=== PATIENT | male | born 1985 | race Caucasian/White ===

== ENCOUNTER 2020-03-20 20:04 | Emergency (ER) | payer BC, MEDICAID ==
[~2020-03-20] VITALS: Ht 180.3 cm; Wt 68.0 kg
[2020-03-20] MEDS: prazosin 5mg capsule PO SCH
[2020-03-20] MEDS: clonazePAM 1mg tablet PO SCH
[2020-03-20] MEDS: traZODone 50mg tablet PO SCH
[~2020-03-20 20:04] MED LIST: DIAZ5TAB PO; DOXE50CA4 PO; OLAN2.5T3 PO; ONDA4TAB6 PO
[2020-03-20 20:28] LABS: BASOPHILS % (AUTO) 0.2 % (0-1); EOSINOPHILS # (AUTO) 0.3 X10'3 (0-0.9); EOSINOPHILS % (AUTO) 3.4 % (0-6); HEMATOCRIT 40.9 % (42.0-52.0); HEMOGLOBIN 14.2 g/dl (14.0-17.9); LYMPHOCYTES # (AUTO) 2.1 X10'3 (1.1-4.8); LYMPHOCYTES % (AUTO) 26.2 % (21-51); MEAN CORPUSCULAR HEMOGLOBIN 31.2 PG (27.0-31.0); MEAN CORPUSCULAR HGB CONC 34.7 g/dL (33.0-36.5); MEAN CORPUSCULAR VOLUME 90.2 FL (78-98); MEAN PLATELET VOLUME 7.9 FL (7.4-10.4); MONOCYTES # (AUTO) 0.8 X10'3 (0-0.9); MONOCYTES % (AUTO) 10.6 % (2-12); NEUTROPHILS # (AUTO) 4.7 X10'3 (1.8-7.7); NEUTROPHILS % (AUTO) 59.6 % (42-75); PLATELET COUNT 252 X10'3 (140-440); RED BLOOD COUNT 4.53 X10'6 (4.70-6.10); RED CELL DISTRIBUTION WIDTH 13.7 % (11.5-14.5); WHITE BLOOD COUNT 7.9 X10'3 (4.5-11.0)
[2020-03-20 20:39] LABS: ALANINE AMINOTRANSFERASE 28 U/L (12-78); ALBUMIN/GLOBULIN RATIO 1.2 (1.1-1.5); ALKALINE PHOSPHATASE 106 IU/L (46-116); ANION GAP 9 (8-16); ASPARTATE AMINO TRANSFERASE 18 U/L (10-37); BILIRUBIN,TOTAL 0.7 MG/DL (0.1-1.0); BLOOD UREA NITROGEN 11 MG/DL (7-18); BUN/CREATININE RATIO 11.6 (5.4-32.0); CALCIUM 8.7 MG/DL (8.5-10.1); CHLORIDE 104 MMOL/L (99-107); CREATININE 0.95 MG/DL (0.60-1.10); ETHANOL < 0.010 GM/DL (0.0-0.010); GLUCOSE 104 MG/DL (70-104); SODIUM 139 MMOL/L (135-145); TOTAL CARBON DIOXIDE 26.5 MMOL/L (24-32); TOTAL PROTEIN 7.4 G/DL (6.4-8.2); eGFR > 90 ML/MIN
[2020-03-20] MEDS ORDERED: CLON-527 PO (20:50)
[2020-03-20] MEDS ORDERED: TRAZ-256 PO (20:50)
[2020-03-20] MEDS ORDERED: PRAZ5CAP2 PO (20:51)
--- NOTE | 2020-03-20 23:37 | NUR ---
Pt sleeping peacefully. Medications for sleep and anxiety not needed at this time.
--- NOTE | 2020-03-21 00:48 | NUR ---
Pt escorted by staff from ER main to ER overflow. Pt given a sandwhich and, juice, and water.
--- NOTE | 2020-03-21 02:00 | NUR ---
Pt sleeping on R side RR WNL.
--- NOTE | 2020-03-21 05:33 | NUR ---
Pt woken up for vitals, pt still not able to urinate.
[2020-03-21 06:15] LABS: CLARITY,URINE SLIGHTLY CLOUDY (Clear); COLOR,URINE YELLOW (Yellow); GLUCOSE, URINE NEGATIVE (Neg); KETONES,URINE NEGATIVE (Neg); LEUKOCYTE ESTERASE ,URINE NEGATIVE (Neg); NITRITES, URINE NEGATIVE (Neg); OCCULT BLOOD,URINE NEGATIVE (Neg); PH,URINE 5.5 (4.8-8.0); PROTEIN,URINE NEGATIVE (Neg)
[2020-03-21 06:19] LABS: UA COLLECTION TYPE CLN CATCH MIDSTREAM
[2020-03-21 06:22] LABS: MUCUS STRANDS MANY /LPF (Neg); SQUAMOUS EPITHELIAL CELL,UR FEW /LPF (FEW)
[2020-03-21 06:23] LABS: BACTERIA,URINE FEW /HPF (Neg); RBC,URINE 0-2 /HPF (0-2); URINE AMPHETAMINE SCREEN POSITIVE (Neg); URINE BARBITUATE SCREEN NEGATIVE (Neg); URINE BENZODIAZEPINES SCREEN NEGATIVE (Neg); URINE CANNABINOID SCREEN POSITIVE (Neg); URINE COCAINE SCREEN NEGATIVE (Neg); URINE METHADONE SCREEN NEGATIVE (Neg); URINE OPIATE SCREEN NEGATIVE (Neg); URINE PHENCYCLIDINE SCREEN NEGATIVE (Neg); WBC,URINE 0-4 /HPF (0-4)
[2020-03-21 06:25] LABS: CAL OXALATE CRYSTALS 1+ /HPF (NEGATIVE)
--- NOTE | 2020-03-21 07:55 | NUR ---
Faxed urine report to [facility].
[2020-03-21] MEDS: clonazePAM 1mg tablet PO SCH ×3 (08:47→21:50)
--- NOTE | 2020-03-21 09:36 | NUR ---
Patient up for breakfast, then back to sleep. No s/s distress noted.
--- NOTE | 2020-03-21 10:47 | NUR ---
[facility]'s Office called looking for a missing person and verified that this patient was verified as inpatient.
--- NOTE | 2020-03-21 12:10 | NUR ---
Edwin from [facility] here to evaluate patient.
--- NOTE | 2020-03-21 13:18 | NUR ---
Patient's mother called looking for her son whom has been missing. Patient eager to speak to his mother. Patient has been sleeping all morning except for eating meals.
--- NOTE | 2020-03-21 13:42 | NUR ---
relieving RN for break, pt is resting quietly on gurney
--- NOTE | 2020-03-21 14:48 | NUR ---
Pt's mother called Elissa Leonila [phone]. She would like to be part of his discharge plan.
--- NOTE | 2020-03-21 16:14 | NUR ---
Edwin from [facility] talked to pts mother who will come to get him at approximately 7:00 to pickup her son. He will be discharging at that time.
--- NOTE | 2020-03-21 17:21 | NUR ---
Resting in bed
[2020-03-21 17:34] VITALS: BP 109/64
--- NOTE | 2020-03-21 18:02 | NUR ---
resting in bed
--- NOTE | 2020-03-21 19:14 | NUR ---
Patient awoke for dinner ate, he then went immediately back to bed.
--- NOTE | 2020-03-21 20:12 | NUR ---
Patient is sleeping on his right side in bed.
--- NOTE | 2020-03-21 21:04 | NUR ---
Patient is sleeping. Family called, they are coming from [place], [place]. At this time they are passing through [place]. ETA 1 hour.
[2020-03-21] MEDS: prazosin 5mg capsule PO SCH (21:50)
[2020-03-21] MEDS: traZODone 50mg tablet PO SCH (21:50)
--- NOTE | 2020-03-21 22:04 | NUR ---
Patient is compliant with nightime medications. Patient requests Rx since he doesn't have a primary care provider back in [facility]. This technical proposal writer spoke with the ER MD. Patient will be getting an Rx for Zyprexa, Trazadone, and his Prazosin. No Rx for Klonopin will be written. Patient and family who picks him up will be instructed to get a primary care provider ABISAI as the patient gets home.
[2020-03-21] MEDS ORDERED: OLAN2.5T3 PO (22:21)
[2020-03-21] MEDS ORDERED: TRAZ-256 PO (22:21)
[2020-03-21] MEDS ORDERED: PRAZ5CAP2 PO (22:26)
--- NOTE | 2020-03-21 22:30 | NUR ---
relieving RN for break, family is here to take pt home, pt is calm and cooperative
== END 2020-03-21 22:33 | disposition home or self-care (01) ==
LOC: ER 20:07
DX: R45.851 Suicidal ideations (principal); F19.10 Other psychoactive substance abuse, uncomplicated; F31.9 Bipolar disorder, unspecified; F12.90 Cannabis use, unspecified, uncomplicated; F15.90 Other stimulant use, unspecified, uncomplicated; F11.90 Opioid use, unspecified, uncomplicated; F17.200 Nicotine dependence, unspecified, uncomplicated; Z86.69 Personal history of other diseases of the nervous system and sense organs; Z59.0 Homelessness; Z79.899 Other long term (current) drug therapy
CPT/HCPCS: 36415; 80053; 80305; 80320; 81001; 85025; 99284; 99285

== ENCOUNTER 2023-02-09 14:15 | Emergency (ER) | payer MEDICAID ==
[~2023-02-09] VITALS: Ht 180.3 cm; Wt 51.8 kg
[~2023-02-09 14:15] MED LIST changes: +CLON-527 PO; -DIAZ5TAB PO; -DOXE50CA4 PO; -ONDA4TAB6 PO; +PRAZ5CAP2 PO; +TRAZ-256 PO
[2023-02-09 14:39] VITALS: BP 122/82
[2023-02-09] MEDS ORDERED: normal saline 1000ML IV soln IVB ONE (16:05)
[2023-02-09 16:19] LABS: BASOPHILS % (AUTO) 0.2 % (0-1); EOSINOPHILS # (AUTO) 0.2 X10'3 (0-0.9); EOSINOPHILS % (AUTO) 2.3 % (0-6); HEMATOCRIT 43.1 % (42.0-52.0); HEMOGLOBIN 14.4 g/dl (14.0-17.9); LYMPHOCYTES # (AUTO) 1.7 X10'3 (1.1-4.8); LYMPHOCYTES % (AUTO) 20.5 % (21-51); MEAN CORPUSCULAR HEMOGLOBIN 30.7 PG (27.0-31.0); MEAN CORPUSCULAR HGB CONC 33.5 g/dL (33.0-36.5); MEAN CORPUSCULAR VOLUME 91.6 FL (78-98); MEAN PLATELET VOLUME 6.7 FL (7.4-10.4); NEUTROPHILS # (AUTO) 5.2 X10'3 (1.8-7.7); PLATELET COUNT 257 X10'3 (140-440); RED CELL DISTRIBUTION WIDTH 14.8 % (11.5-14.5); WHITE BLOOD COUNT 8.1 X10'3 (4.5-11.0)
[2023-02-09 16:31] LABS: ALANINE AMINOTRANSFERASE 146 U/L (12-78); ALBUMIN 3.6 G/DL (3.4-5.0); ALKALINE PHOSPHATASE 165 IU/L (46-116); ANION GAP 5 (8-16); ASPARTATE AMINO TRANSFERASE 64 U/L (10-37); BILIRUBIN,TOTAL 0.8 MG/DL (0.1-1.0); BLOOD UREA NITROGEN 16 MG/DL (7-18); CHLORIDE 107 MMOL/L (99-107); CREATININE 0.94 MG/DL (0.60-1.10); GLUCOSE 99 MG/DL (70-104); POTASSIUM 4.1 MMOL/L (3.5-5.1); SODIUM 142 MMOL/L (135-145); TOTAL CARBON DIOXIDE 30.3 MMOL/L (24-32); TOTAL PROTEIN 7.3 G/DL (6.4-8.2); eGFR > 90 ML/MIN
--- NOTE | 2023-02-09 18:26 | NUR ---
SPOKE WITH [facility] REGARDING PT STAY. PT APPROVED TO STAY.
--- NOTE | 2023-02-09 18:27 | NUR ---
SPOKE WITH [facility] REGARDING TRANSPORTATION TO [facility]. [facility] EST TIME 2 HOURS.
== END 2023-02-09 18:44 | disposition home or self-care (01) ==
LOC: ER 14:15
DX: E86.0 Dehydration (principal); F31.9 Bipolar disorder, unspecified; F12.90 Cannabis use, unspecified, uncomplicated; F15.20 Other stimulant dependence, uncomplicated; Z59.00 Homelessness unspecified
CPT/HCPCS: 36415; 80053; 85025; 96360; 99283; J7030

== ENCOUNTER 2023-02-12 01:47 | Emergency (ER) | payer MEDICAID ==
[~2023-02-12] VITALS: Ht 180.3 cm; Wt 63.6 kg
[2023-02-12 01:52] VITALS: BP 131/85
[2023-02-12] MEDS ORDERED: CLON0.1T PO (02:27)
[2023-02-12] MEDS ORDERED: QUET25TA PO (02:27)
[2023-02-12] MEDS ORDERED: [UNRECOGNIZED DRUG - CODE] PO (02:27)
[2023-02-12] MEDS ORDERED: TRAZ-251 PO (02:27)
== END 2023-02-12 02:42 | disposition home or self-care (01) ==
LOC: ER 01:48
DX: F31.9 Bipolar disorder, unspecified (principal); F17.200 Nicotine dependence, unspecified, uncomplicated; F12.90 Cannabis use, unspecified, uncomplicated; F15.90 Other stimulant use, unspecified, uncomplicated; F11.90 Opioid use, unspecified, uncomplicated; Z72.89 Other problems related to lifestyle; Z59.00 Homelessness unspecified; Z79.899 Other long term (current) drug therapy
CPT/HCPCS: 99281

== ENCOUNTER 2023-03-01 12:07 | Emergency (ER) | payer MEDICAID ==
[~2023-03-01] VITALS: Ht 172.7 cm; Wt 90.0 kg
[~2023-03-01 12:07] MED LIST changes: +CLON0.1T PO; +QUET25TA PO; +TRAZ-251 PO; +[UNRECOGNIZED DRUG - CODE] PO
[2023-03-01 12:13] VITALS: BP 124/72
[2023-03-01] MEDS ORDERED: CLON0.1T PO (12:16)
[2023-03-01] MEDS ORDERED: [UNRECOGNIZED DRUG - CODE] PO (12:16)
[2023-03-01] MEDS ORDERED: OLAN2.5T3 PO (12:16)
[2023-03-01] MEDS ORDERED: TRAZ-251 PO (12:16)
== END 2023-03-01 12:27 | disposition home or self-care (01) ==
LOC: ER 12:08
DX: R56.9 Unspecified convulsions (principal); Z76.0 Encounter for issue of repeat prescription; F17.200 Nicotine dependence, unspecified, uncomplicated; F12.10 Cannabis abuse, uncomplicated; F15.10 Other stimulant abuse, uncomplicated; Z79.899 Other long term (current) drug therapy
CPT/HCPCS: 99281; 99283

== ENCOUNTER 2023-03-06 00:20 | Emergency (ER) | payer MEDICAID ==
[~2023-03-06] VITALS: Ht 180.3 cm; Wt 79.5 kg
[2023-03-06 00:29] VITALS: BP 136/92
== END 2023-03-06 03:12 | disposition home or self-care (01) ==
LOC: ER 00:21
DX: Z00.8 Encounter for other general examination (principal); Z59.00 Homelessness unspecified
CPT/HCPCS: 99281